=== PATIENT | male | born 1995 | race Caucasian/White ===

== ENCOUNTER 2017-06-17 14:22 | Emergency (ER) | payer OTHER ==
[~2017-06-17] VITALS: Ht 170.2 cm; Wt 70.5 kg
[2017-06-17 14:23] VITALS: BP 155/74
[2017-06-17] MEDS ORDERED: OXYC1TAB23 PO (14:29)
[2017-06-17] MEDS ORDERED: IBUP1TAB7 PO (14:29)
[2017-06-17] MEDS ORDERED: DERMABOND TOPICAL SKIN ADHESIVE TOP ONE (17:15)
== END 2017-06-17 17:33 | disposition home or self-care (01) ==
LOC: M ED 14:22
DX: S51.812A Laceration without foreign body of left forearm, initial encounter (principal); W26.9XXA Contact with unspecified sharp object(s), initial encounter; Y92.099 Unspecified place in other non-institutional residence as the place of occurrence of the external cause; Y93.89 Activity, other specified; Y99.9 Unspecified external cause status